=== PATIENT | female | born 1955 | race Caucasian/White ===

== ENCOUNTER → 2021-12-03 | Outpatient (CLI) | payer MEDICARE ==
[~2021-12-03] VITALS: Ht 162.6 cm; Wt 90.7 kg
== END ==
LOC: OPSV 13:32
DX: D50.9 Iron deficiency anemia, unspecified (principal)
CPT/HCPCS: 96365; J1756

== ENCOUNTER → 2021-12-15 | Outpatient (CLI) | payer MEDICARE ==
[~2021-12-15] VITALS: Ht 162.6 cm; Wt 90.7 kg
== END ==
LOC: OPSV 12-08 14:00
DX: D50.9 Iron deficiency anemia, unspecified (principal)
CPT/HCPCS: 96365; J1756

== ENCOUNTER → 2021-12-22 | Outpatient (CLI) | payer MEDICARE ==
[~2021-12-22] VITALS: Ht 162.6 cm; Wt 90.7 kg
== END ==
LOC: OPSV 14:00
DX: D50.9 Iron deficiency anemia, unspecified (principal)
CPT/HCPCS: 96365; J1756

== ENCOUNTER → 2022-04-05 | Outpatient (CLI) | payer MEDICARE ==
[2022-04-05 12:00] LABS: HEMOGLOBIN 12.3 gm/dl (12.3-15.3); RED BLOOD COUNT 4.48 M/UL (4.00-5.10); WHITE BLOOD COUNT 16.5 K/UL (4.5-11.0)
[2022-04-05 12:31] LABS: BUN/CREATININE RATIO 14 (0-10)
== END ==
LOC: LAB 11:23
PROVIDERS: Nurse Practitioner Family
DX: B34.9 Viral infection, unspecified (principal); Z20.822 Contact with and (suspected) exposure to COVID-19; R91.8 Other nonspecific abnormal finding of lung field
CPT/HCPCS: 36415; 71046; 80048; 85025; U0002

== ENCOUNTER → 2022-04-06 | Outpatient (CLI) | payer MEDICARE | LOC: CT 14:39 | DX: R06.02 Shortness of breath (principal); R05.9 Cough, unspecified; R91.8 Other nonspecific abnormal finding of lung field | CPT/HCPCS: 71260; Q9967 ==